=== PATIENT | male | born 1970 | race American Indian/Alaskan Native ===

== ENCOUNTER 2020-05-07 20:01 | Emergency (ER) | payer SELFPAY ==
--- NOTE | 2020-05-07 20:43 | Emergency Department Report ---
ED Psych HPI - General Stated Complaint: SI/MH Time Seen by Provider: 05/07/20 20:36 Source: patient - History of Present Illness Initial Comments: 49-year-old male ED Review of Systems ROS: Stated complaint: SI/MH Other details as noted in HPI Critical care attestation.: If time is entered above; I have spent that time in minutes in the direct care of this critically ill patient, excluding procedure time. ED Disposition Condition: Stable
[2020-05-07] MEDS ORDERED: traMADol 50 MG TAB PO ONE (20:53)
--- NOTE | 2020-05-07 21:02 | Emergency Department Report ---
ED Psych HPI - General Chief Complaint: Psych Stated Complaint: SI/MH Time Seen by Provider: 05/07/20 20:36 Source: patient Mode of arrival: Ambulatory Limitations: No Limitations - History of Present Illness Initial Comments: 49-year-old male with a past medical history of PTSD, schizophrenia, hypertension, depression, anxiety, and fin-rwnpsje-kivrsrfpo diabetes presents to the hospital with complaints of suicidal ideation with plan to jump off a tristen dge. Patient has been on alcohol and drug (cocaine and marijuana) binge for the last 5 days. Has been noncompliant with all his medications. He is currently homeless. He is having auditory hallucinations. Patient complains of chronic right hip pain and states he needs to have a hip replacement. He typically takes tramadol for pain. Patient has 1 suicide attempt in the past via overdose of 150 pills. Patient cannot recall all the names and doses of his medications but states he is on prazosin, Seroquel, trazodone, Vistaril, Cymbalta, losartan, and metformin. - Related Data Home Medications Medication Instructions Recorded Confirmed Last Taken Losartan [Cozaar] 100 mg PO QDAY 05/08/20 05/08/20 Unknown Metformin HCl [metFORMIN] 1,000 mg PO BID 05/08/20 05/08/20 Unknown Ultram 50 MG tab 50 mg PO PRN PRN 05/08/20 05/08/20 Unknown Allergies Allergy/AdvReac Type Severity Reaction Status Date / Time Penicillins Allergy Itching Verified 05/09/20 09:58 ED Review of Systems ROS: Stated complaint: SI/MH Other details as noted in HPI Comment: All other systems reviewed and negative ED Past Medical Hx - Past Medical History Previous Medical History?: Yes Hx Hypertension: Yes Hx Diabetes: Yes Hx Psychiatric Treatment: Yes (PTSD, SCHIZOPHRENIA, ANXIETY, DEPRESSION) Additional medical history: HIGH CHOLESTEROL - Surgical History Past Surgical History?: Yes Additional Surgical History: tOTAL LEFT HIP REPLACEMENT - Social History Smoking Status: Current Every Day Smoker Substance Use Type: Alcohol, Cocaine, Marijuana - Medications Home Medications: Home Medications Medication Instructions Recorded Confirmed Last Taken Type Losartan [Cozaar] 100 mg PO QDAY 05/08/20 05/08/20 Unknown History Metformin HCl [metFORMIN] 1,000 mg PO BID 05/08/20 05/08/20 Unknown History Ultram 50 MG tab 50 mg PO PRN PRN 05/08/20 05/08/20 Unknown History ED Physical Exam - General Limitations: No Limitations - Other Other exam information: General: No acute distress Head: Atraumatic Eyes: normal appearance ENT: Moist mucous membranes Neck: Normal appearance, no midline tenderness Chest: Clear to auscultation bilaterally CV: Regular rate and rhythm Abdomen: Soft, normal bowel sounds, nontender, nondistended, no rebound or guarding Back: Normal inspection Extremity: Normal inspection, limited right hip movement secondary to pain, limp Neuro: Alert O x 3, no facial asymmetry, speech clear, no gross motor sensory deficit Psych: Appropriate behavior Skin: No rash ED Course Vital Signs 05/07/20 05/07/20 05/07/20 20:20 21:18 22:18 Temperature 97.9 F Pulse Rate 88 Respiratory 16 18 18 Rate Blood Pressure 145/103 Blood Pressure 145/103 [Left] O2 Sat by Pulse 98 Oximetry 05/08/20 05/08/20 05/08/20 02:05 08:00 08:36 Temperature 97.4 F L 97.8 F Pulse Rate 79 92 H Respiratory 18 18 18 Rate Blood Pressure Blood Pressure 125/81 124/86 [Left] O2 Sat by Pulse 97 98 Oximetry 05/08/20 05/08/20 05/08/20 14:26 19:40 21:56 Temperature 97.9 F 98.0 F Pulse Rate 79 83 Respiratory 18 18 18 Rate Blood Pressure Blood Pressure 134/82 133/90 [Left] O2 Sat by Pulse 97 97 Oximetry 05/08/20 05/09/20 05/09/20 22:56 02:07 08:00 Temperature 97.8 F Pulse Rate 69 Respiratory 18 16 Rate Blood Pressure Blood Pressure 134/83 [Left] O2 Sat by Pulse 99 Oximetry 05/09/20 08:36 Temperature 98.1 F Pulse Rate 92 H Respiratory 20 Rate Blood Pressure Blood Pressure 146/111 [Left] O2 Sat by Pulse 96 Oximetry ED Medical Decision Making - Lab Data Result diagrams: 05/07/20 21:22 05/07/20 21:22 Lab Results 05/07/20 05/07/20 05/07/20 Range/Units 21:22 21:22 21:22 WBC 9.2 (4.5-11.0) K/mm3 RBC 5.35 H (3.65-5.03) M/mm3 Hgb 13.8 (11.8-15.2) gm/dl Hct 40.9 (35.5-45.6) % MCV 77 L (84-94) fl MCH 26 L (28-32) pg MCHC 34 (32-34) % RDW 15.6 H (13.2-15.2) % Plt Count 225 (140-440) K/mm3 Lymph % (Auto) 30.0 (13.4-35.0) % [place] % (Auto) 9.3 H (0.0-7.3) % Eos % (Auto) 1.7 (0.0-4.3) % Baso % (Auto) 1.1 (0.0-1.8) % Lymph # (Auto) 2.8 (1.2-5.4) K/mm3 [place] # (Auto) 0.9 H (0.0-0.8) K/mm3 Eos # (Auto) 0.2 (0.0-0.4) K/mm3 Baso # (Auto) 0.1 (0.0-0.1) K/mm3 Seg Neutrophils % 57.9 (40.0-70.0) % Seg Neutrophils # 5.3 (1.8-7.7) K/mm3 Sodium 137 (137-145) mmol/L Potassium 3.5 L (3.6-5.0) mmol/L Chloride 101.3 (98-107) mmol/L Carbon Dioxide 25 (22-30) mmol/L Anion Gap 14 mmol/L BUN 19 (9-20) mg/dL Creatinine 0.9 (0.8-1.3) mg/dL Estimated GFR > 60 ml/min BUN/Creatinine Ratio 21 % Glucose 145 H (75-100) mg/dL POC Glucose (70-105) Calcium 9.7 (8.4-10.2) mg/dL Magnesium 2.40 H (1.7-2.3) mg/dL Total Creatine Kinase 664 H (55-170) units/L Urine Color (Yellow) Urine Turbidity (Clear) Urine pH (5.0-7.0) Ur Specific [place] (1.003-1.030) Urine Protein (Negative) mg/dL Urine Glucose (UA) (Negative) mg/dL Urine Ketones (Negative) mg/dL Urine Blood (Negative) Urine Nitrite (Negative) Urine Bilirubin (Negative) Urine Urobilinogen (<2.0) mg/dL Ur Leukocyte Esterase (Negative) Urine WBC (Auto) (0.0-6.0) /HPF Urine RBC (Auto) (0.0-6.0) /HPF U Epithel Cells (Auto) (0-13.0) /HPF Urine Mucus /HPF Salicylates < 0.3 L (2.8-20.0) mg/dL Urine Opiates Screen Urine Methadone Screen Acetaminophen (10.0-30.0) ug/mL Ur Barbiturates Screen Ur Phencyclidine Scrn Ur Amphetamines Screen U Benzodiazepines Scrn Urine Cocaine Screen U Marijuana (THC) Screen Drugs of Abuse Note Plasma/Serum Alcohol (0-0.07) % 05/07/20 05/07/20 05/08/20 Range/Units 21:22 21:22 00:10 WBC (4.5-11.0) K/mm3 RBC (3.65-5.03) M/mm3 Hgb (11.8-15.2) gm/dl Hct (35.5-45.6) % MCV (84-94) fl MCH (28-32) pg MCHC (32-34) % RDW (13.2-15.2) % Plt Count (140-440) K/mm3 Lymph % (Auto) (13.4-35.0) % [place] % (Auto) (0.0-7.3) % Eos % (Auto) (0.0-4.3) % Baso % (Auto) (0.0-1.8) % Lymph # (Auto) (1.2-5.4) K/mm3 [place] # (Auto) (0.0-0.8) K/mm3 Eos # (Auto) (0.0-0.4) K/mm3 Baso # (Auto) (0.0-0.1) K/mm3 Seg Neutrophils % (40.0-70.0) % Seg Neutrophils # (1.8-7.7) K/mm3 Sodium (137-145) mmol/L Potassium (3.6-5.0) mmol/L Chloride (98-107) mmol/L Carbon Dioxide (22-30) mmol/L Anion Gap mmol/L BUN (9-20) mg/dL Creatinine (0.8-1.3) mg/dL Estimated GFR ml/min BUN/Creatinine Ratio % Glucose (75-100) mg/dL POC Glucose (70-105) Calcium (8.4-10.2) mg/dL Magnesium (1.7-2.3) mg/dL Total Creatine Kinase (55-170) units/L Urine Color Yellow (Yellow) Urine Turbidity Clear (Clear) Urine pH 5.0 (5.0-7.0) Ur Specific [place] 1.026 (1.003-1.030) Urine Protein 100 mg/dl (Negative) mg/dL Urine Glucose (UA) Neg (Negative) mg/dL Urine Ketones 20 (Negative) mg/dL Urine Blood Neg (Negative) Urine Nitrite Neg (Negative) Urine Bilirubin Neg (Negative) Urine Urobilinogen 4.0 (<2.0) mg/dL Ur Leukocyte Esterase Neg (Negative) Urine WBC (Auto) 3.0 (0.0-6.0) /HPF Urine RBC (Auto) 4.0 (0.0-6.0) /HPF U Epithel Cells (Auto) 1.0 (0-13.0) /HPF Urine Mucus Few /HPF Salicylates (2.8-20.0) mg/dL Urine Opiates Screen Urine Methadone Screen Acetaminophen 5.0 L (10.0-30.0) ug/mL Ur Barbiturates Screen Ur Phencyclidine Scrn Ur Amphetamines Screen U Benzodiazepines Scrn Urine Cocaine Screen U Marijuana (THC) Screen Drugs of Abuse Note Plasma/Serum Alcohol < 0.01 (0-0.07) % 05/08/20 05/08/20 05/08/20 Range/Units 00:10 09:45 15:03 WBC (4.5-11.0) K/mm3 RBC (3.65-5.03) M/mm3 Hgb (11.8-15.2) gm/dl Hct (35.5-45.6) % MCV (84-94) fl MCH (28-32) pg MCHC (32-34) % RDW (13.2-15.2) % Plt Count (140-440) K/mm3 Lymph % (Auto) (13.4-35.0) % [place] % (Auto) (0.0-7.3) % Eos % (Auto) (0.0-4.3) % Baso % (Auto) (0.0-1.8) % Lymph # (Auto) (1.2-5.4) K/mm3 [place] # (Auto) (0.0-0.8) K/mm3 Eos # (Auto) (0.0-0.4) K/mm3 Baso # (Auto) (0.0-0.1) K/mm3 Seg Neutrophils % (40.0-70.0) % Seg Neutrophils # (1.8-7.7) K/mm3 Sodium (137-145) mmol/L Potassium (3.6-5.0) mmol/L Chloride (98-107) mmol/L Carbon Dioxide (22-30) mmol/L Anion Gap mmol/L BUN (9-20) mg/dL Creatinine (0.8-1.3) mg/dL Estimated GFR ml/min BUN/Creatinine Ratio % Glucose (75-100) mg/dL POC Glucose 99 88 (70-105) Calcium (8.4-10.2) mg/dL Magnesium (1.7-2.3) mg/dL Total Creatine Kinase (55-170) units/L Urine Color (Yellow) Urine Turbidity (Clear) Urine pH (5.0-7.0) Ur Specific [place] (1.003-1.030) Urine Protein (Negative) mg/dL Urine Glucose (UA) (Negative) mg/dL Urine Ketones (Negative) mg/dL Urine Blood (Negative) Urine Nitrite (Negative) Urine Bilirubin (Negative) Urine Urobilinogen (<2.0) mg/dL Ur Leukocyte Esterase (Negative) Urine WBC (Auto) (0.0-6.0) /HPF Urine RBC (Auto) (0.0-6.0) /HPF U Epithel Cells (Auto) (0-13.0) /HPF Urine Mucus /HPF Salicylates (2.8-20.0) mg/dL Urine Opiates Screen Presumptive negative Urine Methadone Screen Presumptive negative Acetaminophen (10.0-30.0) ug/mL Ur Barbiturates Screen Presumptive negative Ur Phencyclidine Scrn Presumptive negative Ur Amphetamines Screen Presumptive negative U Benzodiazepines Scrn Presumptive negative Urine Cocaine Screen Presumptive positive U Marijuana (THC) Screen Presumptive negative Drugs of Abuse Note Disclamer Plasma/Serum Alcohol (0-0.07) % 10/06/20 10/07/20 10/07/20 Range/Units 21:33 05:38 07:53 WBC (4.5-11.0) K/mm3 RBC (3.65-5.03) M/mm3 Hgb (11.8-15.2) gm/dl Hct (35.5-45.6) % MCV (84-94) fl MCH (28-32) pg MCHC (32-34) % RDW (13.2-15.2) % Plt Count (140-440) K/mm3 Lymph % (Auto) (13.4-35.0) % [place] % (Auto) (0.0-7.3) % Eos % (Auto) (0.0-4.3) % Baso % (Auto) (0.0-1.8) % Lymph # (Auto) (1.2-5.4) K/mm3 [place] # (Auto) (0.0-0.8) K/mm3 Eos # (Auto) (0.0-0.4) K/mm3 Baso # (Auto) (0.0-0.1) K/mm3 Seg Neutrophils % (40.0-70.0) % Seg Neutrophils # (1.8-7.7) K/mm3 Sodium (137-145) mmol/L Potassium (3.6-5.0) mmol/L Chloride (98-107) mmol/L Carbon Dioxide (22-30) mmol/L Anion Gap mmol/L BUN (9-20) mg/dL Creatinine (0.8-1.3) mg/dL Estimated GFR ml/min BUN/Creatinine Ratio % Glucose (75-100) mg/dL POC Glucose 97 97 110 H (70-105) Calcium (8.4-10.2) mg/dL Magnesium (1.7-2.3) mg/dL Total Creatine Kinase (55-170) units/L Urine Color (Yellow) Urine Turbidity (Clear) Urine pH (5.0-7.0) Ur Specific [place] (1.003-1.030) Urine Protein (Negative) mg/dL Urine Glucose (UA) (Negative) mg/dL Urine Ketones (Negative) mg/dL Urine Blood (Negative) Urine Nitrite (Negative) Urine Bilirubin (Negative) Urine Urobilinogen (<2.0) mg/dL Ur Leukocyte Esterase (Negative) Urine WBC (Auto) (0.0-6.0) /HPF Urine RBC (Auto) (0.0-6.0) /HPF U Epithel Cells (Auto) (0-13.0) /HPF Urine Mucus /HPF Salicylates (2.8-20.0) mg/dL Urine Opiates Screen Urine Methadone Screen Acetaminophen (10.0-30.0) ug/mL Ur Barbiturates Screen Ur Phencyclidine Scrn Ur Amphetamines Screen U Benzodiazepines Scrn Urine Cocaine Screen U Marijuana (THC) Screen Drugs of Abuse Note Plasma/Serum Alcohol (0-0.07) % - Medical Decision Making 1013 signed for suicidal ideation with plan and polysubstance abuse Medical clearance for psychiatric admission Critical care attestation.: If time is entered above; I have spent that time in minutes in the direct care of this critically ill patient, excluding procedure time. ED Disposition Clinical Impression: MDD (major depressive disorder), Cocaine use disorder, Suicidal ideation, Medical clearance for psychiatric admission Disposition: [id number] PSY HOSP/PSY UNIT Is pt being admited?: No Condition: Stable
[2020-05-07] MEDS: THIAMINE 100 MG TAB PO SCH (21:18)
[2020-05-07] MEDS: FOLIC ACID 1 MG TAB PO SCH (21:18)
[2020-05-07 21:49] LABS: Basophils # (Auto) 0.1 K/mm3 (0.0-0.1); Basophils % (Auto) 1.1 % (0.0-1.8); Eosinophils # (Auto) 0.2 K/mm3 (0.0-0.4); Eosinophils % (Auto) 1.7 % (0.0-4.3); Hematocrit 40.9 % (35.5-45.6); Hemoglobin 13.8 gm/dl (11.8-15.2); Lymphocytes # (Auto) 2.8 K/mm3 (1.2-5.4); Mean Corpuscular HGB Conc 34 % (32-34); Mean Corpuscular Volume 77 fl (84-94); Monocytes # (Auto) 0.9 K/mm3 (0.0-0.8); Monocytes % (Auto) 9.3 % (0.0-7.3); Platelet Count 225 K/mm3 (140-440); Red Blood Count 5.35 M/mm3 (3.65-5.03); Red Cell Distribution Width 15.6 % (13.2-15.2)
[2020-05-07] MEDS ORDERED: QUEtiapine 50 MG, QUEtiapine 100 MG PO SCH (22:00)
[2020-05-07] MEDS: QUEtiapine 100 MG TAB PO SCH (22:03)
[2020-05-07] MEDS: traZODone 50 MG TAB PO SCH (22:03)
[2020-05-07 22:12] LABS: BUN/Creatinine Ratio 21; Blood Urea Nitrogen 19 mg/dL (9-20); Calcium 9.7 mg/dL (8.4-10.2); Hemolysis Index 10
[2020-05-07] MEDS ORDERED: POTASSIUM CHLORIDE ER 20 MEQ TAB PO ONE (23:56)
[2020-05-08 00:52] LABS: Amphetamine Screen,Urine PRESUMPTIVE NEGATIVE; Benzodiazepines Screen,Urine PRESUMPTIVE NEGATIVE; Bilirubin,Urine NEG (Negative); Blood,Urine NEG (Negative); Cannabinoid Screen,Urine PRESUMPTIVE NEGATIVE; Cocaine Screen,Urine PRESUMPTIVE POSITIVE; Color,Urine Yellow (Yellow); Methadone Screen,Urine PRESUMPTIVE NEGATIVE; Mucus,Urine FEW /HPF; Opiate Screen,Urine PRESUMPTIVE NEGATIVE
[2020-05-08] MEDS: traMADol 50 MG TAB PO PRN ×2 (08:36→21:56)
--- NOTE | 2020-05-08 09:20 | Consultation ---
History of Present Illness - Reason for Consult Consult date: 05/08/20 Reason for consult: MHE Requesting physician: AMY SOLANO - Chief Complaint Chief complaint: SI - History of Present Psychiatric Illness Per ED Provider: 49-year-old male with a past medical history of PTSD, schizophrenia, hypertension, depression, anxiety, and pcn-pahmbmr-kdqeqfcky diabetes presents to the hospital with complaints of suicidal ideation with plan to jump off a bridge. Patient has been on alcohol and drug (cocaine and marijuana) binge for the last 5 days. Has been noncompliant with all his medications. He is currently homeless. He is having auditory hallucinations. Patient complains of chronic right hip pain and states he needs to have a hip replacement. He typically takes tramadol for pain. Patient has 1 suicide attempt in the past via overdose of 150 pills. Patient cannot recall all the names and doses of his medications but states he is on prazosin, Seroquel, tr azodone, Vistaril, Cymbalta, losartan, and metformin. Per MHA: Pt is a 49 y/o male who presents to the ED for a MHE. Per records, pt has hx of Schizophrenia, hypertension, depression, anxiety, PTSD. Pt endorses SI w/ plan to jump off a bridge. Pt. reports that he is triggered by his recent relapse and current homelessness. Pt. reports that he has been off of his medications for 5 days. During that time, pt. admits to auditory hallucinations, increased drug use, excessive walking. Reports alcohol use daily in the amount of 2 24-ounce beers. Onset age 12. Reports using marijuana and crack cocaine. Admits to receiving detox and psychiatric treatment in the past from the [facility]. Pt has an upcoming appointment to the [facility] on 05/10/2020 w/ Dr. Hannah. Denies current treatment and last time seen approximately 4 months ago. Pt receives benefits from the [facility] and monthly income is 4,000 per pt. One previous arrest for driving with a suspended license. PSYCH HPI Patient is a with children, unemployed currently on disability homeless -[place] male with past psychiatric history of PTSD, from service, depression, schizophrenia and past medical history of hypertension, dyslipidemia and diabetes who presented to the ED with chief com plaint of suicidal ideation and command auditory hallucinations. Patient reportedly has been walking for 5 days with no improvement and poor sleep and he got tired of living that way. He then made up his mind to jump off a bridge and just . She reported he has been off drugs for 2 years and has stopped doing cocaine recently relapsed when he met a woman who was living with him in his Airbnb and she introduced him back to doing drugs. Patient says he gets $4000, pt moved from [place] to [place], did not get a place or rent but utilizes [facility], he says part of the money goes to his children care, and they reside in [place]. Patient endorses now feeling hopeless from drug relapse, depressed and hearing voices and has been off his medications too. He says he would like to be sent to the [facility]. PAST PSYCHIATRIC HISTORY Diagnoses: PTSD from service, depression, schizophrenia Suicide attempts or Self-harm behavior: Yes Prior psychiatric hospitalizations: Yes Substance Abuse history: Cocaine Previous psychiatric medications tried: Yes Outpatient treatment: Yes PAST MEDICAL HISTORY: hypertension, dyslipidemia and diabetes Family Psychiatric History: None reported or documented SOCIAL HISTORY Marital Status: Living Arrangements: homeless Employment Status: income Access to guns/weapons: none reported Education: [employer] [facility] [place] History of Abuse: None reported Legal History: none reported REVIEW OF SYSTEMS Constitutional: Negative for weight loss ENT: Negative for stridor Respiratory: Negative for cough or hemoptysis All other systems reviewed and are negative MENTAL STATUS EXAMINATION General Appearance and Behavior: Age appropriate,good hygiene, wearing appropriate clothes, lying in bed, good eye contact, uncooperative irritable w ith questioning. Cooperation: Participating/engaged Psychomotor Behavior: unremarkable and within normal limits Mood: Depressed Affect and affective range: sad Thought Process: Fluent/Logical Thought Content:, Hopelessness, Helplessness and hallucinations Speech: Normal volume, Regular rate and rhythmg Intellectual Functioning: Average Suicidal Ideation: Suicidal Homicidal Ideation: Denies HI Impulse Control: Impaired Insight and JudgmentLimited insight and judgment Memory: Normal Attention: Normal, Orientation: Alert, oriented Assessment and Plan - Psychiatric problem (1) MDD (major depressive disorder) Current Visit: Yes Status: Acute (2) Cocaine use disorder Current Visit: Yes Status: Acute MEDICATIONS: home meds restarted Risks, benefits and alternatives of medications discussed with the patient, questions answered and consent obtained from patient. PSYCHOTHERAPY: Supportive psychotherapy provided MEDICAL: Per primary team DELIRIUM PRECAUTIONS: Please re-orient patient frequently, keep lights on during the day, and minimize benzodiazepines and opiates as these medications could worsen patient's confusion. BUSINESS ASST: DISPOSITION: Do Recommend acute inpatient psychiatric hospitalization at this time LEGAL STATUS: 1013 FOLLOW-UP: Will follow Thank you for the consult. Please contact with any questions and/or concerns. Medications and Allergies Allergies Allergy/AdvReac Type Severity Reaction Status Date / Time Penicillins Allergy Itching Verified 05/07/20 21:00 Home Medications Medication Instructions Recorded Confirmed Last Taken Type Losartan [Cozaar] 100 mg PO QDAY 05/08/20 05/08/20 Unknown History Metformin HCl [metFORMIN] 1,000 mg PO BID 05/08/20 05/08/20 Unknown History Ultram 50 MG tab 50 mg PO PRN PRN 05/08/20 05/08/20 Unknown History Active Meds: Active Medications Folic Acid (Folvite) 1 mg PO QDAY [facility] Last Admin: 05/07/20 21:18 Dose: 1 mg Documented by: Quetiapine Fumarate (Seroquel) 150 mg PO BID [facility] Last Admin: 05/07/20 22:03 Dose: 150 mg Documented by: Thiamine HCl (Vitamin B-1) 100 mg PO DAILY [facility] Last Admin: 05/07/20 21:18 Dose: 100 mg Documented by: Tramadol HCl (Ultram) 50 mg PO Q6HR PRN PRN Reason: Pain , Severe (7-10) Last Admin: 05/08/20 08:36 Dose: 50 mg Documented by: Trazodone HCl (Desyrel) 50 mg PO QHS [facility] Last Admin: 05/07/20 22:03 Dose: 50 mg Documented by: Mental Status Exam - Vital signs Last Vital Signs Temp 97.8 F 05/08/20 08:00 Pulse 92 H 05/08/20 08:00 Resp 18 05/08/20 08:36 BP 124/86 05/08/20 08:00 Pulse Ox 98 05/08/20 08:00 Results Result Diagrams: 05/07/20 21:22 05/07/20 21:22 Abnormal lab results 05/07/20 05/07/20 05/07/20 Range/Units 21:22 21:22 21:22 RBC 5.35 H (3.65-5.03) M/mm3 MCV 77 L (84-94) fl MCH 26 L (28-32) pg RDW 15.6 H (13.2-15.2) % [place] % (Auto) 9.3 H (0.0-7.3) % [place] # (Auto) 0.9 H (0.0-0.8) K/mm3 Potassium 3.5 L (3.6-5.0) mmol/L Glucose 145 H (75-100) mg/dL Magnesium 2.40 H (1.7-2.3) mg/dL Total Creatine Kinase 664 H (55-170) units/L Salicylates < 0.3 L (2.8-20.0) mg/dL Acetaminophen (10.0-30.0) ug/mL 05/07/20 Range/Units 21:22 RBC (3.65-5.03) M/mm3 MCV (84-94) fl MCH (28-32) pg RDW (13.2-15.2) % [place] % (Auto) (0.0-7.3) % [place] # (Auto) (0.0-0.8) K/mm3 Potassium (3.6-5.0) mmol/L Glucose (75-100) mg/dL Magnesium (1.7-2.3) mg/dL Total Creatine Kinase (55-170) units/L Salicylates (2.8-20.0) mg/dL Acetaminophen 5.0 L (10.0-30.0) ug/mL All other labs normal. Assessment and Plan - Psychiatric problem (1) MDD (major depressive disorder) Current Visit: Yes Status: Acute (2) Cocaine use disorder Current Visit: Yes Status: Acute
[2020-05-08] MEDS: FOLIC ACID 1 MG TAB PO SCH (09:47)
[2020-05-08] MEDS: QUEtiapine 100 MG TAB PO SCH ×2 (09:48→21:56)
[2020-05-08] MEDS: THIAMINE 100 MG TAB PO SCH (09:49)
[2020-05-08] MEDS: traZODone 50 MG TAB PO SCH (21:56)
[2020-05-09 08:37] VITALS: BP 146/111
[2020-05-09] MEDS: THIAMINE 100 MG TAB PO SCH (09:40)
[2020-05-09] MEDS: FOLIC ACID 1 MG TAB PO SCH (09:40)
[2020-05-09] MEDS: QUEtiapine 100 MG TAB PO SCH (09:40)
--- NOTE | 2020-05-09 10:46 | Progress Note ---
Subjective - Reason for Consult Consult date: 05/09/20 Reason for consult: MHE Requesting physician: AMY SOLANO - Chief Complaint Chief complaint: Psych Progress Patient seen this AM, reports sleeping well, endorses SI but reports improved mood. Says he has been told about placement and would like to go to mental health facility REVIEW OF SYSTEMS Constitutional: Negative for weight loss ENT: Negative for stridor Respiratory: Negative for cough or hemoptysis All other systems reviewed and are negative MENTAL STATUS EXAMINATION General Appearance and Behavior: Age appropriate,good hygiene, wearing appropriate clothes, lying in bed, good eye contact, uncooperative irritable with questioning. Cooperation: Participating/engaged Psychomotor Behavior: unremarkable and within normal limits Mood: Depressed Affect and affective range: sad Thought Process: Fluent/Logical Thought Content:, Hopelessness, Helplessness and hallucinations Speech: Normal volume, Regular rate and rhythmg Intellectual Functioning: Average Suicidal Ideation: Suicidal Homicidal Ideation: Denies HI Impulse Control: Impaired Insight and JudgmentLimited insight and judgment Memory: Normal Attention: Normal, Orientation: Alert, oriented Assessment and Plan - Psychiatric problem (1) MDD (major depressive disorder) Current Visit: Yes Status: Acute (2) Cocaine use disorder Current Visit: Yes Status: Acute MEDICATIONS: home meds restarted Risks, benefits and alternatives of medications discussed with the patient, questions answered and consent obtained from patient. PSYCHOTHERAPY: Supportive psychotherapy provided MEDICAL: Per primary team DELIRIUM PRECAUTIONS: Please re-orient patient frequently, keep lights on during the day, and minimize benzodiazepines and opiates as these medications could worsen patient's confusion. HEAD OF DESIGN: DISPOSITION: Do Recommend acute inpatient psychiatric hospitalization at this time LEGAL STATUS: 1013 FOLLOW-UP: Will follow Thank you for the consult. Please contact with any questions and/or concerns. Mental Status Exam - Vital signs Last Vital Signs Temp 98.1 F 05/09/20 08:36 Pulse 92 H 05/09/20 08:36 Resp 20 05/09/20 08:36 BP 146/111 05/09/20 08:36 Pulse Ox 96 05/09/20 08:36 Assessment and Plan - Patient Problems (1) MDD (major depressive disorder) Current Visit: Yes Status: Acute (2) Cocaine use disorder Current Visit: Yes Status: Acute
== END 2020-05-09 10:51 ==
LOC: ED 20:01
DX: R45.851 Suicidal ideations (principal); I10 Essential (primary) hypertension; E11.9 Type 2 diabetes mellitus without complications; F25.1 Schizoaffective disorder, depressive type; F41.9 Anxiety disorder, unspecified; E78.00 Pure hypercholesterolemia, unspecified; F17.200 Nicotine dependence, unspecified, uncomplicated; F12.90 Cannabis use, unspecified, uncomplicated; F14.90 Cocaine use, unspecified, uncomplicated; Z98.890 Other specified postprocedural states; Z88.0 Allergy status to penicillin
CPT/HCPCS: 36415; 80048; 80307; 80320; 81001; 82550; 82962; 83735; 85025; G0480